=== PATIENT | male | born 1965 | race Caucasian/White ===

== ENCOUNTER → 2019-04-16 | Outpatient (CLI) | payer BC ==
--- NOTE | 2019-04-16 09:04 | Diagnostic Imaging Report ---
TECHNIQUE: Magnetic resonance imaging of the RIGHT HAND was performed WITHOUT injected contrast. HISTORY: Pain, sprain of the metacarpal phalange joint index finger. COMPARISON: None. FINDINGS: Bones: No focal or infiltrative bone marrow replacing abnormalities identified. No acute fracture or osteonecrosis. Joints: Thickening and edema involving the radial collateral ligament and adjacent capsule of the index finger MTP joint Soft Tissues: The flexor and extensor tendons are intact. Annular pulleys are intact. IMPRESSION: Index finger MP joint radial collateral ligament/capsular sprain. No high-grade tear. Signed by: Dr. Boris Brar M.D. on 04/16/2019 9:01 AM
== END ==
LOC: MRI 07:25
PROVIDERS: ATTEND Specialist
DX: S63.650D Sprain of metacarpophalangeal joint of right index finger, subsequent encounter (principal)

== ENCOUNTER → 2020-02-13 | Outpatient (CLI) | payer BC ==
[~2020-02-13] MED LIST: GADOBENATE DIMEGLUMINE 1 ML IV ONE
[2020-02-13 11:19] LABS: BLOOD UREA NITROGEN 10 mg/dL (7-26); BUN/CREATININE RATIO 10 (6-25); CREATININE, SERUM 1.01 mg/dL (0.72-1.25); EST GLOMERULAR FILTRATION RATE > 60 ML/MIN (60-)
--- NOTE | 2020-02-13 12:46 | Diagnostic Imaging Report ---
TECHNIQUE: Magnetic resonance imaging of the left hand was performed without and with injected contrast. HISTORY: Painful nodule COMPARISON: None. FINDINGS: Bones: No focal or infiltrative bone marrow replacing abnormalities identified. No acute fracture or osteonecrosis. Joints: No focal lesions are seen. Soft Tissues: Soft tissue marker placed over the long finger PIP joint at the radial aspect. In this region, a nonspecific subcutaneous nodule measuring approximately 5 mm which is T1 isointense to muscle, slightly hyperintense on fluid sensitive signal, and shows some enhancement. The nodule is adjacent to the extensor tendon and radial collateral ligament. IMPRESSION: 5 mm subcutaneous nodule at the dorsal radial aspect of the PIP joint of the long finger. The imaging characteristics are nonspecific. Etiologies to consider are granuloma, fibroma, and less likely small giant cell tumor as it is adjacent to the extensor tendon. Signed by: Dr. Boris Brar M.D. on 02/13/2020 12:42 PM
== END ==
LOC: MRI 10:31
PROVIDERS: ATTEND Specialist
DX: R22.32 Localized swelling, mass and lump, left upper limb (principal)
CPT/HCPCS: 36415; 82565; 84520

== ENCOUNTER → 2020-03-19 | Outpatient (CLI) | payer BC ==
[~2020-03-19] MED LIST changes: +SODIUM CHLORIDE 0.9% 50ML 50 ML ONE
[2020-03-19 10:12] LABS: BLOOD UREA NITROGEN 7 mg/dL (7-26); BUN/CREATININE RATIO 7 (6-25); CREATININE, SERUM 0.95 mg/dL (0.72-1.25); EST GLOMERULAR FILTRATION RATE > 60 ML/MIN (60-)
--- NOTE | 2020-03-19 13:53 | Diagnostic Imaging Report ---
TECHNIQUE: MRI of the pelvis WITHOUT and WITH intravenous contrast. INDICATION: 54-year-old man with left lower quadrant and groin pain. COMPARISON: None. FINDINGS: PELVIC ORGANS/BLADDER: No focal bladder lesion. Nonspecific mildly T2 hypointense signal in the left peripheral zone of the prostate. PERITONEUM/RETROPERITONEUM: No free air or fluid. LYMPH NODES: No lymphadenopathy. VESSELS: Unremarkable. GI TRACT: No distention or wall thickening. 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 Soft tissues are unremarkable. IMPRESSION: No acute or suspicious abnormalities in the pelvis. 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 Nonspecific mild signal abnormality in the left peripheral zone of the prostate. This finding may be correlated with serum prostate-specific antigen. Signed by: Noreen Alvaerz MD on 03/19/2020 1:49 PM
== END ==
LOC: MRI 09:34
PROVIDERS: ATTEND Surgery
DX: R10.32 Left lower quadrant pain (principal)
CPT/HCPCS: 36415; 72197; 82565; 84520

== ENCOUNTER → 2020-03-31 | Outpatient (CLI) | payer BC ==
--- NOTE | 2020-03-31 15:38 | Diagnostic Imaging Report ---
TECHNIQUE: Magnetic resonance imaging of the LEFT SHOULDER was performed WITHOUT injected contrast. COMPARISON: None available. HISTORY: Pain FINDINGS: MUSCLES AND TENDONS: Rotator Cuff: Tendons: Interstitial tear of the supraspinatus at the humeral insertion. No full-thickness defect. Muscles: No focal muscle atrophy. Biceps Tendon: The long head of the biceps tendon is intact and within the intertubercular groove. GLENOHUMERAL JOINT: Glenoid Labrum: Fraying and attenuation of the superior labrum. Articular Cartilage: No focal defect. AC JOINT AND ACROMION: Moderate hypertrophic degenerative changes of the acromioclavicular joint with reactive edema. The acromion is unremarkable. BONE: Cystic change at the greater tuberosity. No acute fracture. SOFT TISSUES: Otherwise, the soft tissues appear unremarkable. IMPRESSION: Supraspinatus interstitial tear at the humeral insertion. No full-thickness defect. Hypertrophic acromioclavicular arthrosis with reactive edema. Signed by: Dr. Boris Brar M.D. on 03/31/2020 3:35 PM
== END ==
LOC: MRI 12:46
PROVIDERS: ATTEND Specialist
DX: S46.092A Other injury of muscle(s) and tendon(s) of the rotator cuff of left shoulder, initial encounter (principal)

== ENCOUNTER 2020-05-01 09:00 | Outpatient (RCR) | payer BC | END 2020-05-03 | LOC: PT 09:00 | PROVIDERS: ATTEND Specialist | DX: S76.912D Strain of unspecified muscles, fascia and tendons at thigh level, left thigh, subsequent encounter (principal); M62.81 Muscle weakness (generalized); M25.512 Pain in left shoulder; M25.612 Stiffness of left shoulder, not elsewhere classified ==

== ENCOUNTER 2020-05-23 07:00 | Outpatient (RCR) | payer BC | END 2020-06-02 | LOC: PT 07:00 | PROVIDERS: ATTEND Specialist | DX: S76.912D Strain of unspecified muscles, fascia and tendons at thigh level, left thigh, subsequent encounter (principal); M62.81 Muscle weakness (generalized); M25.612 Stiffness of left shoulder, not elsewhere classified; M25.512 Pain in left shoulder | CPT/HCPCS: 97139 ==

== ENCOUNTER 2020-06-20 08:00 | Outpatient (RCR) | payer BC | END 2020-07-03 | LOC: PT 08:00 | PROVIDERS: ATTEND Specialist | DX: S76.912D Strain of unspecified muscles, fascia and tendons at thigh level, left thigh, subsequent encounter (principal); M62.81 Muscle weakness (generalized); M25.512 Pain in left shoulder; M25.612 Stiffness of left shoulder, not elsewhere classified | CPT/HCPCS: 97139 ==

== ENCOUNTER → 2021-09-14 | Outpatient (CLI) | payer BC | LOC: MRI 07:45 | PROVIDERS: ATTEND Specialist | DX: S86.012A Strain of left Achilles tendon, initial encounter (principal) ==

== ENCOUNTER → 2021-10-02 | Outpatient (CLI) | payer BC | LOC: MRI 14:44 | PROVIDERS: ATTEND Specialist | DX: S83.221A Peripheral tear of medial meniscus, current injury, right knee, initial encounter (principal) ==